=== PATIENT | female | born 2000 | race Native Hawaiian/Other Pacific Islander ===

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

== ENCOUNTER 2023-01-30 12:52 | Emergency (ER) | payer BC ==
[~2023-01-30] VITALS: Ht 170.2 cm; Wt 72.6 kg
[2023-01-30 13:22] VITALS: BP 114/67; TEMP 98
== END 2023-01-30 13:22 | disposition home or self-care (01) ==
LOC: ED 12:52
DX: B34.9 Viral infection, unspecified (principal); F17.210 Nicotine dependence, cigarettes, uncomplicated
CPT/HCPCS: 99281